=== PATIENT | male | born 1970 | race Caucasian/White ===

== ENCOUNTER 2018-03-06 23:08 | Emergency (ER) | payer OTHER ==
[2018-03-07] MEDS ORDERED: KETOROLAC TROMETHAMINE 60 MG/2 ML SDV IM ONE (00:28)
[2018-03-07] MEDS ORDERED: DEXAMETHASONE SOD PHOS INJ 10 MG/1 ML VIAL IM ONE (00:28)
[2018-03-07] MEDS ORDERED: LIDOCAINE 5% (700 MG) TRANSDERMAL ADH..PATCH TP ONE (00:28)
[2018-03-07] MEDS ORDERED: HYDROCODONE/ACETAMINOPHEN 5-325 MG TABLET PO ONE (00:29)
--- NOTE | 2018-03-07 00:34 | ER Document Report ---
ED Neck/Back Problem - General Chief Complaint: Back Pain Stated Complaint: BACK PAIN Time Seen by Provider: 03/07/18 00:20 Mode of Arrival: Ambulatory Information source: Patient Notes: 47-year-old male presents to ED for complaint of low back pain 3 days. States he has had chronic back pain since 2017 but he has back specialist that he was going to went out of business and the ID has not given him another doctor. He states he is not on any chronic pain management at this time. He states he does not have regular insurance he just [facility] and they have not set him up with a new neurologist O back specialist. States he has not fallen he has not done any new injuries. He states the pain is similar to what he has had in the past. He states it does radiate down both legs but is not loss control of bowel bladder, no saddle anesthesia, no loss of control of lower extremities, or any loss of sensation to his lower legs. TRAVEL OUTSIDE OF THE [place] IN LAST 30 DAYS: No - HPI Onset: Other - He states this is chronic pain that he has had for a while he had a spinal fusion in 2017 just became worse over the last 3 days. He states it was gradual Onset: Chronic Timing: Still present Quality of pain: Sharp Severity: Moderate Pain Level: 4 Recent injury: No Associated symptoms: Like prior neck/back pain, Radiation to leg, Lower back pain. denies: Motor loss, Numbness/tingling, Radiation to arm, Radiation to chest, Sensory loss, Sweaty, Unable to urinate, Upper back pain Exacerbated by: Movement of trunk Relieved by: Nothing Similar symptoms previously: Yes Recently seen / treated by doctor: No - Related Data Allergies/Adverse Reactions: Penicillins Allergy (Verified 03/06/18 23:18) Past Medical History - General Information source: Patient - Social History Smoking Status: Never Smoker - Uses vapor cigarettes Cigarette use (# per day): No Chew tobacco use (# tins/day): No Smoking Education Provided: No Frequency of alcohol use: None Drug Abuse: None Lives with: Family Family History: Reviewed & Not Pertinent Patient has suicidal ideation: No Patient has homicidal ideation: No - Past Medical History Cardiac Medical History: Reports: None Pulmonary Medical History: Reports: None EENT Medical History: Reports: None Neurological Medical History: Reports: None Endocrine Medical History: Reports: None Renal/ Medical History: Reports: Hx Kidney Stones Malignancy Medical History: Reports None GI Medical History: Reports: Hx Colonoscopy, Other - States she has been worked up for either Crohn's or ulcerative colitis Musculoskeltal Medical History: Reports Hx Musculoskeletal Deformity, Reports Hx Musculoskeletal Trauma Skin Medical History: Reports None Psychiatric Medical History: Reports: Hx Depression Traumatic Medical History: Reports: Hx Fractures - Hands bilateral and right elbow Infectious Medical History: Reports: None Past Surgical History: Reports: Hx Orthopedic Surgery - Right elbow and lumbar spine, L3-L4, L4-L5, L5-S1 - Immunizations Immunizations up to date: Yes Review of Systems - Review of Systems Constitutional: No symptoms reported EENT: No symptoms reported Cardiovascular: No symptoms reported Respiratory: No symptoms reported Gastrointestinal: No symptoms reported. denies: Constipation, Fecal incontinence Genitourinary: No symptoms reported. denies: Incontinence, Retention Male Genitourinary: No symptoms reported Musculoskeletal: Back pain, Muscle pain, Muscle stiffness Skin: No symptoms reported Hematologic/Lymphatic: No symptoms reported Neurological/Psychological: No symptoms reported. denies: Gait changes, Numbness, Tingling -: Yes All other systems reviewed and negative Physical Exam - Vital signs Vitals: Temp Pulse Resp BP Pulse Ox 98.5 F 105 H 15 134/83 H 97 03/06/18 23:20 03/06/18 23:20 03/06/18 23:20 03/06/18 23:20 03/06/18 23:20 Interpretation: Normal - General General appearance: Appears well, Alert - HEENT Head: Normocephalic, Atraumatic Eyes: Normal Pupils: PERRL - Respiratory Respiratory status: No respiratory distress Chest status: Nontender Breath sounds: Normal Chest palpation: Normal - Cardiovascular Rhythm: Regular Heart sounds: Normal auscultation Murmur: No - Abdominal Inspection: Normal Distension: No distension Bowel sounds: Normal Tenderness: Nontender. No: Tender Organomegaly: No organomegaly. No: Mass - No pulsatile masses palpated - Back Back: Normal, Tender, Scars. No: Deformity/step-off, CVA tenderness, Vertebra tenderness, Scoliosis, Wounds - Extremities General upper extremity: Normal inspection, Nontender, Normal color, Normal ROM , Normal temperature General lower extremity: Normal inspection, Nontender, Normal color, Normal ROM , Normal temperature, Normal weight bearing. No: Luis Enrique's sign - Neurological Neuro grossly intact: Yes Cognition: Normal Orientation: AAOx4 Qing Coma Scale Eye Opening: Spontaneous [place] Coma Scale Verbal: Oriented [place] Coma Scale Motor: Obeys Commands Qing Coma Scale Total: 15 Speech: Normal Motor strength normal: LUE, RUE, LLE, RLE Sensory: Normal - Psychological Associated symptoms: Normal affect, Normal mood - Skin Skin Temperature: Warm Skin Moisture: Dry Skin Color: Normal Course - Re-evaluation Re-evalutation: 03/07/18 01:25 Patient states he has had chronic back pain and had a lumbar fusion in 2017. States he goes to the ID clinic. States he is being worked up to determine if he has ulcerative colitis or Crohn's but is not having problems with that at this time. He states that he is having the pain that he has had in the past in his lower back but his back specialist went out of business and he has not had any follow-up for his chronic pain. He states his ID doctor keeps telling him that they are going to set him up with someone but they have not done this such yet. I did suggest that he talk with [facility] and [facility] as they have a back specialist. He was treated with Toradol and Decadron IM in the emergency room as well as a lidocaine patch. He was given a prescription for the lidocaine patches. After performing a Medical Screening Examination, I estimate there is LOW risk for EXPANDING OR RUPTURED ABDOMINAL AORTIC ANEURYSM, CAUDA EQUINA SYNDROME, EPIDURAL MASS LESION, or HERNIATED DISK CAUSING SEVERE SPINAL STENOSIS, thus I consider the discharge disposition reasonable. I have reevaluated this patient multiple times and no significant life threatening changes are noted. The patient and I have discussed the diagnosis and risks, and we agree with discharging home and close follow-up. We also discussed returning to the Emergency Department immediately if new or worsening symptoms occur with the understanding that symptoms and presentations can change. We have discussed the symptoms which are most concerning (e.g., saddle anesthesia, urinary or bowel incontinence or retention, changing or worsening pain) that necessitate immediate return. - Vital Signs Vital signs: Temp Pulse Resp BP Pulse Ox 98.7 F 82 18 122/87 H 97 03/07/18 01:03 03/07/18 01:03 03/07/18 01:03 03/07/18 01:03 03/07/18 01:03 Discharge - Discharge Clinical Impression: Chronic low back pain with bilateral sciatica Qualifiers: Back pain laterality: bilateral Qualified Code(s): M54.42 - Lumbago with sciatica, left side Condition: Stable Disposition: HOME, SELF-CARE Additional Instructions: Chronic Pain Control Stress, inactivity, and depression make pain more severe regardless of the cause of the pain. Stress and poor physical condition can cause pain such as headaches and backache. Relaxation: Rest in a quiet place with your eyes closed for 20 minutes twice daily. Concentrate on a pleasant image, or simply "feel" your breathing. Clear your mind. Stress management: Deal with your "stressors." Either take action, or eliminate the stressor from your life. Don't let things hang over you. Accept those things you can't change. Nutrition: Eat small, balanced meals -- don't skip, don't overeat. Meals should be high-carbohydrate, low-sugar, low-fat. Exercise: Exercise helps painful conditions and eases stress. Get 30 minutes of moderate exercise, five days a week. Do an activity that does not flare your pain. Precautions: Pain which continues to disrupt daily activities, or which changes in nature, requires a medical evaluation. Pain Clinic referral is available. We do not manage chronic pain in the Emergency Department. We will try to appropriately help you through an acute flare of your chronic painful condition , but for on-going chronic pain that does not improve, you will need to see your private doctor or depilatory painter. We do not provide repeated medication management of chronic painful conditions. If you wish, we can provide the name of local pain management physicians. LOW BACK PAIN: Three out of every four people will have an episode of disabling back pain during their lifetime. Most commonly the pain is due to straining of the muscles and ligaments in the low back. Usual treatment includes: (1) Rest on a firm surface. Avoid lying on your stomach. (2) Ice pack the painful area. After a few days, gentle heat may be used intermittently to relax the area, or ice packs can be continued. (3) Medication may be needed -- muscle relaxers and antiinflammatory medicines are commonly used. (4) As the back improves, exercises are prescribed to strengthen the back and abdominal muscles. Your doctor will advise you on the proper care for your back at each stage in your recovery. You may be better in a few days -- or healing may take several weeks. If new symptoms of a "herniated disc" (radiation of pain, numbness, or tingling down the back of the leg or weakness in the leg) occur, you should be re-examined. Further testing may be necessary. Toradol Injection You have been given an injection of ketorolac tromethamine (Toradol). This is an excellent, safe drug for pain control. It also has potent antiinflammatory action. You should have significant pain relief within about one hour. Toradol is not addicting and is non-sedating. It does not interfere with driving or work. Call or return if you develop itching, hives, shortness of breath, or rash. STEROID MEDICATION: You have been given a medicine of the cortisone/steroid class. This medication is used to control inflammation or allergy. It is usually only given for a short period of time, until the acute process subsides. There are usually no side effects from short-term use of cortisone-like medications. Some persons feel an increased sense of well-being and are not sleepy at bedtime. Long-term use of cortisone medications is best avoided, unless required for a severe condition. If your condition does not remit, or relapses after the course of corticosteroid medication, you should consult your physician. Stretching Exercises for the Back The physician has recommended that you begin stretching exercises for your back. These are often used even while the back is painful. However, you should notify the physician if the activities seem to increase your pain. PELVIC TILT: Lie flat on your back with knees bent. Tighten your stomach and buttock muscles so it flattens your lower back against the floor. Hold 10 seconds. Repeat 10 times, twice daily. KNEE RAISE: Lying on the back with knees bent, raise one knee to your chest, then the other. Hold both knees against the chest 10 seconds, then lower one knee at a time. Repeat 10 times, twice daily. PARTIAL TRUNK RAISE: Lie face down, arms at your sides. Keeping your waist on the floor, use your arms raise your chest up. Support yourself on your elbows for 30 seconds. Repeat twice daily, increasing the time to two minutes as you recover. ICE PACKS: Apply ice packs frequently against the painful area. Many different schedules are recommended, such as "20 minutes on, 20 minutes off" or "one hour ice, two hours rest." If you need to work, you may need to go longer between ice treatments. You should plan to have the area ice packed AT LEAST one fourth of the time. The ice should be applied over the wrap, tape, or splint, or over a layer of cloth -- not directly against the skin. Some ice bags have a built-in cloth and can be put directly on the skin. WARM PACKS: After approximately two days, apply gentle heat (such as a heating pad or hot water bottle) for about 20 to 30 minutes about every two hours -- at least four times daily. Warmth and elevation will help you make a more rapid recovery , and will ease the pain considerably. Do not use HOT heat, and never apply heat for longer than 30 minutes. The continuous heat can invisibly damage skin and muscles -- even when no burn is seen on the surface. Damaged muscles can make you MORE sore. FOLLOW-UP CARE: If you have been referred to a physician for follow-up care, call the physician s office for an appointment as you were instructed or within the next two days. If you experience worsening or a significant change in your symptoms, notify the physician immediately or return to the Emergency Department at any time for re-evaluation. Prescriptions: Lidocaine [Lidoderm 5% (700 mg) Transdermal Patch] 1 patch TP DAILY #30 adh..patch Forms: Smoking Cessation Education, Elevated Blood Pressure Referrals: VON MATA, CONDENSER OPERATOR [Primary Care Provider] - Follow up as needed
[2018-03-07 01:04] VITALS: BP 122/87
== END 2018-03-07 01:04 | disposition home or self-care (01) ==
LOC: ER 23:08
DX: M54.42 Lumbago with sciatica, left side (principal); M54.9 Dorsalgia, unspecified; G89.29 Other chronic pain; M54.2 Cervicalgia; M79.604 Pain in right leg; M79.605 Pain in left leg
CPT/HCPCS: 99283; 96372; J1885; J1100

== ENCOUNTER 2018-06-02 14:58 | Emergency (ER) | payer OTHER ==
[2018-06-02 15:04] VITALS: BP 138/70
--- NOTE | 2018-06-02 15:25 | ER Document Report ---
HPI - HPI Patient complains to provider of: Left ear pain Onset: Other - Yesterday Onset/Duration: Gradual, Worse Pain Level: 4 Context: 48-year-old male complaining of left ear pain that is gotten worse since he started Ciprodex yesterday. [facility] after developing ear pain Friday night after scuba diving. 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 No history of otitis externa. No history of ruptured TM. There is no ear drainage. No fever or chills. He does state that there is some swelling in front of the left ear now. Associated Symptoms: None Exacerbated by: Movement Relieved by: Denies Similar symptoms previously: No Recently seen / treated by doctor: Yes - ROS ROS below otherwise negative: Yes Systems Reviewed and Negative: Yes All other systems reviewed and negative Past Medical History - General Information source: Patient - Social History Smoking Status: Never Smoker Lives with: Family Family History: Reviewed & Not Pertinent Renal/ Medical History: Reports: Hx Kidney Stones. Denies: Hx Peritoneal Dialysis GI Medical History: Reports: Hx Colonoscopy Musculoskeletal Medical History: Reports Hx Musculoskeletal Deformity, Reports Hx Musculoskeletal Trauma Psychiatric Medical History: Reports: Hx Depression Traumatic Medical History: Reports: Hx Fractures - Hands bilateral and right elbow Past Surgical History: Reports: Hx Orthopedic Surgery - Right elbow and lumbar spine, L3-L4, L4-L5, L5-S1 - Immunizations Immunizations up to date: Yes Vertical Provider Document - CONSTITUTIONAL Agree With Documented VS: Yes - INFECTION CONTROL TRAVEL OUTSIDE OF THE [place] IN LAST 30 DAYS: No - HEENT HEENT: negative: Tympanic Membrane Red, Tympanic Membrane Bulging Notes: Left TM is normal, the ear canal is swollen with tenderness but I can see the TM , a few pre-and posterior auricular nodes, mastoid is nontender, external ear is not protruding., Right ear canal has a scaling dermatitis which she states itches at times. - NECK Neck: Supple, Lymphadenopathy-Left - see above - NEURO Level of Consciousness: Awake, Alert Course - Vital Signs Vital signs: Temp Pulse Resp BP Pulse Ox 99.0 F 83 16 138/70 H 98 06/02/18 15:02 06/02/18 15:02 06/02/18 15:02 06/02/18 15:02 06/02/18 15:02 Discharge - Discharge Clinical Impression: Left otitis externa, Left ear canal swelling, Right ear canal dermatitis Condition: Good Disposition: HOME, SELF-CARE Instructions: Otitis Externa ([facility]), Ciprofloxacin ([facility]), Using Ear Drops with a Wick ([facility]), Ibuprofen (General) ([facility]), Acetaminophen, Warm Packs ([facility]), Topical Steroid Cream or Ointment ([facility]) Additional Instructions: Warm compress No swimming until your ear is better Return to the emergency room for swelling to the external ear, hot ear, red ear , swelling behind the ear 4 drops of Ciprodex that she have in the left ear twice a day, keep the wick wet. Once the swelling of the canal goes down the ear work will fall out on its own Motrin up to 800 mg 3 times a day for inflammation Tylenol up to 4000 mg a day for pain Ear recheck in 2 days sooner if worse 1% hydrocortisone ointment to the right ear canal twice a day will reduce the dermatitis in the canal. Prescriptions: Ibuprofen [Motrin 800 mg Tablet] 800 mg PO Q8HP PRN #30 tablet PRN Reason: Referrals: VON MATA NP [NO LOCAL MD] - 06/04/18
[2018-06-02] MEDS ORDERED: ACETAMINOPHEN 325 MG TABLET PO ONE (15:32)
[2018-06-02] MEDS ORDERED: IBUPROFEN 800 MG TABLET PO ONE (15:32)
== END 2018-06-02 15:48 | disposition home or self-care (01) ==
LOC: ER 14:58
DX: H60.92 Unspecified otitis externa, left ear (principal); L30.9 Dermatitis, unspecified; H92.02 Otalgia, left ear; R59.0 Localized enlarged lymph nodes
CPT/HCPCS: 99282

== ENCOUNTER 2019-03-24 15:54 | Emergency (ER) | payer OTHER ==
--- NOTE | 2019-03-24 17:03 | RADIOLOGY REPORT (SQ) ---
EXAM DESCRIPTION: FOOT LEFT COMPLETE COMPLETED DATE/TIME: 03/24/2019 4:50 pm REASON FOR STUDY: fell on dock COMPARISON: None. NUMBER OF VIEWS: Three views. TECHNIQUE: AP, lateral and oblique radiographic images acquired of the left foot. LIMITATIONS: None. FINDINGS: MINERALIZATION: Normal. BONES: No acute fracture or dislocation. No worrisome bone lesions. JOINTS: No effusions. SOFT TISSUES: No soft tissue swelling. No foreign body. OTHER: No other significant finding. IMPRESSION: NEGATIVE STUDY OF THE LEFT FOOT. NO RADIOGRAPHIC EVIDENCE OF ACUTE INJURY. TECHNICAL DOCUMENTATION: JOB ID: [id number] [employer]- All Rights Reserved Reading location - IP/workstation name: [email or web address]
[2019-03-24 17:09] VITALS: BP 150/72
--- NOTE | 2019-03-24 18:27 | ER Document Report ---
ED General - General Chief Complaint: Foot Pain Stated Complaint: FOOT INJURY Time Seen by Provider: 03/24/19 18:17 Mode of Arrival: Ambulatory Information source: Patient TRAVEL OUTSIDE OF THE [place] IN LAST 30 DAYS: No - HPI Patient complains to provider of: Left foot injury Onset: Just prior to arrival Onset/Duration: Sudden Quality of pain: Sharp Severity: Severe Pain Level: 4 Associated symptoms: None Exacerbated by: Movement, Walking, Other Relieved by: Denies - Weightbearing Similar symptoms previously: No Recently seen / treated by doctor: No Notes: 48-year-old male coming in today with left foot injury. 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 He has quite swollen and bruised foot with some distal tib-fib abrasions as well. - Related Data Allergies/Adverse Reactions: Penicillins Allergy (Verified 06/02/18 14:59) Past Medical History - General Information source: Patient - Social History Smoking Status: Smoker,Current Status Unk Family History: Reviewed & Not Pertinent Renal/ Medical History: Reports: Hx Kidney Stones. Denies: Hx Peritoneal Dialysis GI Medical History: Reports: Hx Colonoscopy Musculoskeletal Medical History: Reports Hx Musculoskeletal Deformity, Reports Hx Musculoskeletal Trauma Psychiatric Medical History: Reports: Hx Depression Traumatic Medical History: Reports: Hx Fractures - Hands bilateral and right elbow Past Surgical History: Reports: Hx Orthopedic Surgery - Right elbow and lumbar spine, L3-L4, L4-L5, L5-S1 - Immunizations Immunizations up to date: Yes Review of Systems - Review of Systems Notes: Constitutional: No fevers. No chills. EENT: No eye redness. No eye pain. No ear pain. No sore throat. Cardiovascular: No chest pain. No palpitations. Respiratory: No cough. No shortness of breath. No respiratory distress. Gastrointestinal: No abdominal pain. No nausea, vomiting, or diarrhea. Genitourinary: Atraumatic. No lesions. No pain. No discharge. Musculoskeletal: Positive for left foot pain and swelling Skin: No rash or lesions. Lymphatic: No swollen lymph nodes. Neurologic: No headache. No syncope. Psychiatric: No suicidal or homicidal ideation. Physical Exam - Vital signs Vitals: Temp Pulse Resp BP Pulse Ox 98.7 F 96 16 150/72 H 92 03/24/19 17:01 03/24/19 17:01 03/24/19 17:01 03/24/19 17:01 03/24/19 17:01 - Notes Notes: General: Well-developed, well-nourished. In no acute distress. Non-toxic appearing. Cardiac: Well-perfused. Regular rate and rhythm. No murmurs, rubs, or gallops. Pulmonary: No respiratory distress. No cyanosis. Bilateral lung fiels are clear to auscultation. Abdominal: Non-distended. Non-rigid. Bowels sounds are present in all four quadrants. No guarding or rebound. HEENT: Head is atraumatic. Conjunctivae not reddened. No tearing. PERRL. EOMI. Orbits atraumatic. No periorbital swelling or erythema. Oropharynx is without erythema, swelling, or exudates. Neck: Supple. No adenopathy. No meningismus. Dermatologic: Warm with good turgor. No rash. Atraumatic. Chest: Atraumatic. No chest wall tenderness to palpation. Musculoskeletal: Left foot and ankle examined. Left foot is moderately swollen throughout. Ecchymosis present pretty much throughout. Diffusely tender throughout. DP and PT pulses 2+ bilateral and equal on lower extremities. Good range of motion of digits. distal neurovascular exam is intact Genitourinary: Examination deferred Neurologic: No gross neurologic deficits. Psychiatric: Normal mood. Course - Re-evaluation Re-evalutation: 03/24/19 18:33 X-rays negative. Patient does not want any pain medication. Does not want an [place] wrap. Does not want crutches. - Vital Signs Vital signs: Temp Pulse Resp BP Pulse Ox 98.7 F 96 16 150/72 H 92 03/24/19 17:01 03/24/19 17:01 03/24/19 17:01 03/24/19 17:01 03/24/19 17:01 Discharge - Discharge Clinical Impression: Foot contusion Qualifiers: Encounter type: initial encounter Laterality: left Qualified Code(s): S90.32XA - Contusion of left foot, initial encounter Condition: Good Disposition: HOME, SELF-CARE Instructions: Contusion ([facility]) Additional Instructions: Ice, elevate, ibuprofen or Tylenol for pain. Referrals: KORI GREGORY MD [ASSOCIATE] - Follow up as needed
== END 2019-03-24 18:56 | disposition home or self-care (01) ==
LOC: ER 15:54
DX: S90.32XA Contusion of left foot, initial encounter (principal); S80.812A Abrasion, left lower leg, initial encounter; M79.672 Pain in left foot; M79.89 Other specified soft tissue disorders; W01.0XXA Fall on same level from slipping, tripping and stumbling without subsequent striking against object, initial encounter; F17.200 Nicotine dependence, unspecified, uncomplicated
CPT/HCPCS: 99283

== ENCOUNTER 2019-05-09 21:44 | Emergency (ER) | payer OTHER ==
--- NOTE | 2019-05-09 22:02 | ER Document Report ---
ED General - General Stated Complaint: RAPID HEART RATE Time Seen by Provider: 05/09/19 22:01 Primary Care Provider: MAYO NAVARRO [Primary Care Provider] - Follow up as needed Notes: Patient is a pleasant 49-year-old male who presents with complaints of feeling like his heart was racing. Patient says that he felt his heart was racing. He looked down at his grandma and watching his heart rate was getting up to 150 bpm. The last 2 hours he is also noticed pain into his left arm. He says the pain is not in the joints. The only in the forearm and upper arm. Denies any numbness or tingling into his hands. No pain in any other extremities. 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 He did do a dive today down to 95 feet. He says that he had a slow stent. He said there is no complications during stop and he did not have any problems. No difficulty breathing. No chest pain. No other complaints at this time. Denies any headache. No focal weakness or numbness. TRAVEL OUTSIDE OF THE [place] IN LAST 30 DAYS: No - Related Data Allergies/Adverse Reactions: Penicillins Allergy (Verified 05/09/19 22:25) Past Medical History - Social History Smoking Status: Never Smoker Frequency of alcohol use: None Drug Abuse: None Family History: Reviewed & Not Pertinent Renal/ Medical History: Reports: Hx Kidney Stones. Denies: Hx Peritoneal Dialysis GI Medical History: Reports: Hx Colonoscopy Musculoskeletal Medical History: Reports Hx Musculoskeletal Deformity, Reports Hx Musculoskeletal Trauma Psychiatric Medical History: Reports: Hx Depression Traumatic Medical History: Reports: Hx Fractures - Hands bilateral and right elbow Past Surgical History: Reports: Hx Orthopedic Surgery - Right elbow and lumbar spine, L3-L4, L4-L5, L5-S1 - Immunizations Immunizations up to date: Yes Review of Systems - Review of Systems Notes: My Normal Review Basic REVIEW OF SYSTEMS: CONSTITUTIONAL : Denies fever, chills, or sweats. Denies recent illness. CARDIOVASCULAR: Denies chest pain. Palpitations RESPIRATORY: Denies cough, cold, or chest congestion. Denies shortness of breath, difficulty breathing, or wheezing. GASTROINTESTINAL: Denies abdominal pain. Denies nausea, vomiting, or diarrhea. Denies constipation. Last BM: MUSCULOSKELETAL: Pain in left arm SKIN: Denies rash or skin lesions. NEUROLOGICAL: Denies altered mental status or loss of consciousness. Denies headache. Denies weakness or paralysis or loss of use of either side. Denies problems with gait or speech. Denies sensory or motor loss. ALL OTHER SYSTEMS REVIEWED AND NEGATIVE. Physical Exam - Vital signs Vitals: Temp Pulse Resp BP Pulse Ox 98.4 F 92 18 172/90 H 96 05/09/19 21:44 05/09/19 21:44 05/09/19 21:44 05/09/19 21:44 05/09/19 21:44 - Notes Notes: General Appearance: Well nourished, alert, cooperative, no acute distress, moderate obvious discomfort. Vitals: reviewed, See vital signs table. Head: no swelling or tenderness to the head Eyes: PERRL, EOMI, Conjuctiva clear Mouth: No decreasd moisture Lungs: No wheezing, No rales, No rhonci, No accessory muscle use, good air exchange bilaterally. Heart: Normal rate, Regular rythm, No murmur, no rub Abdomen: Normal BS, soft, No rigidity, No abdominal tenderness, No guarding, no rebound, no abdominal masses, no organomegaly Extremities: strength 5/5 in all extremities, good pulses in all extremities, patient has pain left forearm and left upper arm but is not really made much worse with palpation. No swelling in the joints. Patient is good cap refill in the left hand. Good movement of the left hand. Good distal sensation. Normal radial and ulnar pulses., no edema. Skin: warm, dry, appropriate color, no rash Neuro: speech clear, oriented x 3, normal affect, responds appropriately to questions. Cranial nerves II through XII are intact. Distal sensation intact. Patient moves all extremities without difficulty. No focal neurologic deficits on exam. normal rhomberg, normal heel to lee testion, normal coordination of movements. Course - Re-evaluation Re-evalutation: 05/09/19 23:30 Due to the patient's ongoing worsening arm pain on concerned that this is related to his deep dives today. I therefore called [facility] and spoke with the dive specialist, Dr. Gautam Fuentes. He recommends having patient on nonrebreather oxygen and have the patient shipped up there. He says that they would likely do a hyperbaric dive in the morning. I did explain the plan to the patient patient is agreeable to it. I did recheck his neuro exam remains completely neuro intact. He has normal balance. Normal Romberg. Normal [id number]. No neuro deficits. His only complaint at this time is the left arm pain. Patient is currently on nonrebreather oxygen mask. 05/09/19 23:32 05/09/19 23:33 Patient's dive log for today is that he did 3 dives. First dive was from 8:35 to 9:10 AM with a max depth of 98 feet. Second dive was from 10:39 AM to 11:14 AM with max depth of 97 feet. Third dive was from 1:03 PM to 1:37 PM with a max depth of 95 feet. On all 3 dives he used Nitrox 32%. 05/10/19 06:39 I reevaluate the patient at time of transfer. He was still having pain in his left arm. I informed the paramedics make sure he keeps the nonrebreather on in route to [place]. Patient continues not have any neurologic deficits. He continues to otherwise do well except for the severe left arm pain. Patient is stable for transfer. Dictation of this chart was performed using voice recognition software; therefore, there may be some unintended grammatical errors. - Vital Signs Vital signs: Temp Pulse Resp BP Pulse Ox 98.4 F 95 18 118/88 H 98 05/09/19 21:44 05/09/19 21:44 05/09/19 21:44 05/09/19 22:32 05/09/19 22:32 - Laboratory Result Diagrams: 05/09/19 21:27 05/09/19 21:27 Laboratory results interpreted by me: 05/09/19 21:27 Glucose 137 H - EKG Interpretation by Me Additional EKG results interpreted by me: 05/09/19 22:01 EKG is reviewed and interpreted by me. EKG shows sinus rhythm with a rate of [address] segment elevation or depression. No ischemic T wave inversions. CT interval, QRS duration, QT intervals are within normal range. No old EKG available for comparison. Discharge - Discharge Clinical Impression: Left arm pain Condition: Stable Disposition: [place] [facility]: [facility] [[facility]] - Follow up as needed
[2019-05-09 22:17] LABS: ABSOLUTE LYMPHOCYTES (AUTO) 1.9 10^3/uL (0.5-4.7); ABSOLUTE MONOCYTES (AUTO) 0.8 10^3/uL (0.1-1.4); ABSOLUTE NEUT (AUTO) 7.8 10^3/uL (1.7-8.2); BASOPHILS % (AUTO) 0.3 % (0-2); EOSINOPHILS % (AUTO) 0.1 % (0-6); HEMOGLOBIN 15.5 g/dL (13.5-17.0); LYMPHOCYTES % (AUTO) 17.7 % (13-45); MEAN CORPUSCULAR HEMOGLOBIN 31.3 pg (27.0-33.4); MEAN CORPUSCULAR HGB CONC 35.2 g/dL (32.0-36.0); MEAN CORPUSCULAR VOLUME 89 fl (80-97); MONOCYTES % (AUTO) 7.5 % (3-13); PLATELET COUNT 279 10^3/uL (150-450); RED BLOOD COUNT 4.95 10^6/uL (4.35-5.55); RED CELL DISTRIBUTION WIDTH 13.4 % (11.5-14.0); SEGMENTED NEUTROPHILS % (AUTO) 74.4 % (42-78); TOTAL CELLS COUNTED % (AUTO) 100 %; WHITE BLOOD COUNT 10.5 10^3/uL (4.0-10.5)
[2019-05-09 22:38] LABS: ALBUMIN 4.4 g/dL (3.5-5.0); ALKALINE PHOSPHATASE 66 U/L (38-126); ANION GAP 13 (5-19); ASPARTATE AMINO TRANSFERASE 32 U/L (17-59); BILIRUBIN,DIRECT 0.2 mg/dL (0.0-0.4); BILIRUBIN,TOTAL 0.6 mg/dL (0.2-1.3); BLOOD UREA NITROGEN 19 mg/dL (7-20); CALCIUM 9.8 mg/dL (8.4-10.2); CARBON DIOXIDE 22 mmol/L (22-30); CHLORIDE 106 mmol/L (98-107); GLUCOSE 137 mg/dL (75-110); POTASSIUM 4.1 mmol/L (3.6-5.0); TOTAL PROTEIN 7.1 g/dL (6.3-8.2)
[2019-05-09] MEDS ORDERED: MORPHINE SULFATE 10 MG/ML INJ IV ONE (22:39)
[2019-05-09 22:41] VITALS: BP 118/88
[2019-05-09] MEDS ORDERED: NORMAL SALINE 500 ML IV ONE (22:50)
--- NOTE | 2019-05-09 22:54 | RADIOLOGY REPORT (SQ) ---
EXAM DESCRIPTION: XR CHEST 1 VIEW COMPLETED DATE/TME: 05/09/2019 22:11 CLINICAL HISTORY: 49 years, Male, palpitations COMPARISON: None. NUMBER OF VIEWS: TECHNIQUE: LIMITATIONS: None. FINDINGS: No evidence of pulmonary infiltrate or pleural effusion. The heart and mediastinum are unremarkable. Pulmonary vascularity appears normal. IMPRESSION: No acute finding. copyright 2010 [employer]- All Rights Reserved
[2019-05-09] MEDS ORDERED: FENTANYL CITRATE INJ/PF 100 MCG/2 ML AMPUL IV ONE (23:08)
[2019-05-10] MEDS ORDERED: HYDROMORPHONE HCL INJ/PF 2 MG/ML AMPULE IV ONE (00:34)
--- NOTE | 2019-05-10 07:46 | EKG REPORT ---
SEVERITY:- NORMAL ECG - SINUS RHYTHM : Confirmed by: Phil Torres MD 10-May-2019 07:37:38
== END 2019-05-10 01:31 | disposition short-term general hospital (02) ==
LOC: ER 21:44
DX: M79.632 Pain in left forearm (principal); M79.622 Pain in left upper arm; R00.2 Palpitations; Z88.0 Allergy status to penicillin
CPT/HCPCS: 93005; 99285; 96361; 96374; 96375; 36415; 83735; 85025; 80053; 84484; 71045; 93010; J3010; J2270; J1170; J7040